=== PATIENT | female | born 1985 | race Two or more races ===

== ENCOUNTER 2017-01-17 17:10 | Observation (INO) | payer MEDICAID ==
[~2017-01-17 17:10] MED LIST: PREN-96 PO
== END 2017-01-17 18:37 | disposition home or self-care (01) | DRG 566 ==
LOC: LDRP 17:10
PROVIDERS: ADMIT Specialist; ATTEND Specialist
DX: O26.893 Other specified pregnancy related conditions, third trimester (principal); R10.2 Pelvic and perineal pain; Z3A.29 29 weeks gestation of pregnancy
CPT/HCPCS: 59025; 81002; G0378

== ENCOUNTER 2017-04-24 16:15 | Inpatient (IN) | payer MEDICAID ==
[~2017-04-24] VITALS: Ht 157.5 cm; Wt 92.1 kg
[2017-04-24] MEDS ORDERED: LACTATED RINGER'S 1,000 ML IV SCH ×2 (16:30→21:08)
[2017-04-24] MEDS ORDERED: METHYLERGONOVINE MALEATE 0.2 MG/ML AMP IM PRN (16:30)
[2017-04-24] MEDS ORDERED: LACT. RINGERS/OXYTOCIN 20UNITS 1,000 ML IV SCH ×2 (16:30→21:08)
[2017-04-24] MEDS ORDERED: LIDOCAINE 2%HCL (LOCAL ANESTH.) INJ 20ML MDV IJ ONE (16:30)
[2017-04-24] MEDS ORDERED: NALBUPHINE HCL 10 MG/1ml INJECTION IV PRN (16:30)
[2017-04-24 17:13] LABS: Basophils # (auto) 0 uL; Basophils % (auto) 0.3 % (0.0-2.0); Eosinophils # (auto) 0 uL; Eosinophils % (auto) 0.2 % (0.0-7.0); Lymphocytes # (auto) 1.1 uL; Lymphocytes % (auto) 9.9 % (10.0-50.0); Mean Corpuscular Hgb Conc. 33.3 g/dL (32.0-36.0); Mean Corpuscular Volume 86.9 fL (80.0-100.0); Monocytes # (auto) 0.4 uL; Monocytes % (auto) 3.5 % (0.0-12.0); Neutrophils # (auto) 9.3 uL; Neutrophils % (auto) 86.1 % (37.0-80.0); Platelet Count (auto) 348 10^3/uL (140-450); Red Blood Cells 4.14 10^6/uL (4.0-5.20); Red Cell Distribution Width 15.9 % (11.8-14.3); White Blood Cell 10.8 10^3/uL (4.4-10.8)
[2017-04-24 17:18] LABS: Urine Bacteria NONE SEEN /hpf (None Seen); Urine Blood Negative /uL (Negative); Urine Mucus FEW (None Seen); Urine Specific Gravity 1.022 (1.001-1.035); Urine WBC 5 /hpf (0 - 5)
[2017-04-24 17:23] LABS: Albumin 2.6 g/dL (3.4-5.0); BUN/Creatinine Ratio 18.3; Calcium 8.6 mg/dL (8.5-10.1); Potassium 3.8 mmol/L (3.5-5.1)
[2017-04-24 17:26] LABS: Bilirubin, Total 0.2 mg/dL (0.2-1.0); Total Protein 7.3 g/dL (6.4-8.2)
[2017-04-24 17:37] LABS: INR 0.85 (0.9-1.15); Prothrombin Time 9.2 sec (9.37-12.3)
[2017-04-24] MEDS ORDERED: NALOXONE HCL 0.4 MG/ML VIAL IV ONE ×2 (17:45→19:30)
[2017-04-24] MEDS ORDERED: fentaNYL W ROPIVACAINE 150 ML EPI SCH ×2 (17:45→19:30)
[2017-04-24] MEDS ORDERED: ePHEDrine SULFATE 50 MG/ML AMP IV ONE ×2 (17:45→19:30)
[2017-04-24] MEDS ORDERED: LIDOCAINE HCL 2 %PF INJ 10ML AMP IJ ONE (17:45)
[2017-04-24] MEDS ORDERED: fentaNYL CITRATE 100 MCG/2 ML VL IV ONE ×2 (17:45→19:30)
[2017-04-24] MEDS ORDERED: WITCH HAZEL-GLYCERIN PAD TOP ONE (17:46)
[2017-04-24] MEDS ORDERED: SODIUM CHLORIDE 0.9% 500 ML IV PRN (19:22)
[2017-04-24] MEDS ORDERED: TERBUTALINE SULFATE 1 MG/ML 1ML VIAL SC ONE (21:15)
[2017-04-24] MEDS ORDERED: IBUPROFEN 600 MG TAB PO ONE (22:45)
[2017-04-25 03:15] VITALS: BP 110/63
[2017-04-25 08:00] VITALS: BP 112/69
[2017-04-25] MEDS: IBUPROFEN 600 MG TAB PO PRN ×3 (10:04→19:32)
[2017-04-25] MEDS: DOCUSATE CALCIUM 240 MG CAP PO SCH (10:04)
[2017-04-25] MEDS ORDERED: TETANUS-DIPTH-ACEL PERTUSSIS 0.5ML SYRG IM ONE (10:45)
[2017-04-25] MEDS ORDERED: WITCH HAZEL-GLYCERIN PAD TOP ONE (12:18)
[2017-04-25 12:30] VITALS: BP 118/77
[2017-04-25] MEDS ORDERED: WITCH HAZEL-GLYCERIN PAD TOP PRN (12:30)
[2017-04-25 16:10] VITALS: BP 117/68
[2017-04-25 19:29] VITALS: BP 111/59
[2017-04-25] MEDS ORDERED: ACETAMINOPHEN 325 MG TAB PO PRN (19:30)
[2017-04-25 23:29] VITALS: BP 107/61
[2017-04-25] MEDS ORDERED: DERMOPLAST 60ML BOTTLE TOP ONE (23:36)
[2017-04-26 03:32] VITALS: BP 93/53
[2017-04-26] MEDS: IBUPROFEN 600 MG TAB PO PRN ×2 (04:52→09:33)
[2017-04-26 08:00] VITALS: BP 111/56
[2017-04-26] MEDS: DOCUSATE CALCIUM 240 MG CAP PO SCH (10:30)
== END 2017-04-26 12:10 | disposition home or self-care (01) | DRG 560 ==
LOC: LDRP 16:15 → OBSVTOIN 16:15 → LDRP 17:12
PROVIDERS: ADMIT Specialist; ATTEND Specialist
PROC: 10907ZC Drainage of Amniotic Fluid, Therapeutic from Products of Conception, Via Natural or Artificial Opening (ICD-10-PCS; principal; 2017-04-24)
PROC: 10E0XZZ Delivery of Products of Conception, External Approach (ICD-10-PCS; 2017-04-24)
PROC: 0HQ9XZZ Repair Perineum Skin, External Approach (ICD-10-PCS; 2017-04-24)
PROC: 3E0R3BZ Introduction of Anesthetic Agent into Spinal Canal, Percutaneous Approach (ICD-10-PCS; 2017-04-24)
PROC: 00HU33Z Insertion of Infusion Device into Spinal Canal, Percutaneous Approach (ICD-10-PCS; 2017-04-24)
DX: O69.81X0 Labor and delivery complicated by cord around neck, without compression, not applicable or unspecified (principal); F84.0 Autistic disorder; O70.0 First degree perineal laceration during delivery; Z37.0 Single live birth; Z23 Encounter for immunization; Z3A.39 39 weeks gestation of pregnancy
CPT/HCPCS: 36415; 51702; 59025; 59409; 62282; 80053; 81001; 81002; 85025; 85610; 85730; 86850; 86900; 86901; 90715; 96365; 96366; J2590; J3010

== ENCOUNTER 2017-11-28 19:28 | Emergency (ER) | payer MEDICAID ==
[~2017-11-28] VITALS: Ht 157.5 cm; Wt 60.8 kg
[2017-11-28 20:14] LABS: Basophils # (auto) 0 uL; Basophils % (auto) 0.4 % (0.0-2.0); Eosinophils # (auto) 0.1 uL; Eosinophils % (auto) 1.2 % (0.0-7.0); Hematocrit 41.1 % (36.0-46.0); Hemoglobin 14.2 g/dL (12.2-16.2); Lymphocytes # (auto) 1.8 uL; Lymphocytes % (auto) 19.5 % (10.0-50.0); Mean Corpuscular Hemoglobin 29.3 pg (28.0-32.0); Mean Corpuscular Hgb Conc. 34.5 g/dL (32.0-36.0); Mean Corpuscular Volume 85.1 fL (80.0-100.0); Monocytes # (auto) 0.4 uL; Monocytes % (auto) 4.7 % (0.0-12.0); Neutrophils # (auto) 6.8 uL; Neutrophils % (auto) 74.2 % (37.0-80.0); Platelet Count (auto) 349 10^3/uL (140-450); Red Blood Cells 4.83 10^6/uL (4.0-5.20); Red Cell Distribution Width 15.4 % (11.8-14.3); White Blood Cell 9.1 10^3/uL (4.4-10.8)
[2017-11-28 20:25] LABS: BUN/Creatinine Ratio 11.1; Bilirubin, Total 0.2 mg/dL (0.2-1.0); Calcium 8.9 mg/dL (8.5-10.1); Potassium 3.9 mmol/L (3.5-5.1)
[2017-11-29] MEDS ORDERED: NALBUPHINE HCL 10 MG/1ml INJECTION IV ONE ×2 (01:45→03:30)
[2017-11-29] MEDS ORDERED: PANTOPRAZOLE 40 MG/10 ML VIAL IV ONE (01:45)
[2017-11-29] MEDS ORDERED: ONDANSETRON HCL 4 MG/2 ML VIAL IV ONE (01:45)
[2017-11-29 01:57] LABS: Amylase 134 U/L (25-115); Lipase 142 U/L (73-393)
[2017-11-29 02:43] LABS: INR 0.97 (0.9-1.15); Partial Thromboplastin Time 29.2 sec (23.78-33.04); Prothrombin Time 10.4 sec (9.27-12.13)
[2017-11-29 04:16] VITALS: BP 121/81
== END 2017-11-29 04:16 | disposition home or self-care (01) ==
LOC: ER 19:28
DX: K80.20 Calculus of gallbladder without cholecystitis without obstruction (principal)
CPT/HCPCS: 36415; 74176; 80053; 82150; 83690; 84702; 85025; 85610; 85730; 94761; 96374; 96375; 96376; 99285; C9113; J2300; J2405